=== PATIENT | male | born 1965 | race Hispanic/Latino ===

== ENCOUNTER → 2018-05-01 | Outpatient (CLI) | payer OTHER ==
[2018-05-01 09:17] LABS: BASOPHILS % (AUTO) 0.7 % (0.0-5.0); EOSINOPHILS % (AUTO) 3.7 % (0.0-8.0); HEMATOCRIT 46.3 % (42-54); LYMPHOCYTES % (AUTO) 40.5 % (21.0-51.0); MEAN CORPUSCULAR HEMOGLOBIN 30.7 pg (27.0-33.0); MEAN CORPUSCULAR HGB CONC 33.9 g/dL (32.0-36.0); MEAN CORPUSCULAR VOLUME 90.7 fL (79-99); MONOCYTES % (AUTO) 9.6 % (3.0-13.0); NEUTROPHILS % (AUTO) 45.5 % (40.0-77.0); NUCLEATED RED BLOOD CELLS 0.1 % (0.0-0.19); PLATELET COUNT (AUTO) 248 K/uL (130-400); RED CELL DISTRIBUTION WIDTH 14.5 % (11.0-15.5); WHITE BLOOD COUNT (AUTO) 5.7 K/uL (4.8-10.8)
[2018-05-01 09:26] LABS: CREATININE 0.9 mg/dL (0.5-1.5); POTASSIUM 4.2 mmol/L (3.5-5.1)
[2018-05-01 09:38] LABS: ALBUMIN 3.9 g/dL (3.5-5.0); BILIRUBIN,TOTAL 0.4 mg/dL (0.2-1.0); THYROID STIMULATING HORMONE 7.92 uIU/mL (0.36-3.74); TOTAL PROTEIN, SERUM 7.7 g/dL (6.0-8.3)
== END | disposition home or self-care (01) ==
LOC: LAB 08:07
PROVIDERS: ATTEND Internal Medicine
DX: Z12.11 Encounter for screening for malignant neoplasm of colon (principal); E03.9 Hypothyroidism, unspecified; I10 Essential (primary) hypertension; Z83.3 Family history of diabetes mellitus
CPT/HCPCS: 36415; 80053; 80061; 82043; 84153; 84443; 85025

== ENCOUNTER → 2018-05-03 | Outpatient (CLI) | payer OTHER | END | disposition home or self-care (01) | LOC: RAH 08:43 | PROVIDERS: ATTEND Internal Medicine | DX: I08.1 Rheumatic disorders of both mitral and tricuspid valves (principal); R06.09 Other forms of dyspnea | CPT/HCPCS: 93306 ==

== ENCOUNTER → 2018-05-04 | Outpatient (CLI) | payer OTHER | END | disposition home or self-care (01) | LOC: RAH 13:11 | PROVIDERS: ATTEND Internal Medicine | DX: R06.09 Other forms of dyspnea (principal); R07.9 Chest pain, unspecified | CPT/HCPCS: 93015 ==

== ENCOUNTER → 2018-06-02 | Outpatient (CLI) | payer OTHER ==
[~2018-06-02] MED LIST: REGADENOSON 0.4 MG/5 ML PF SYG IVP SCH
== END | disposition home or self-care (01) ==
LOC: SHCH 08:18
PROVIDERS: ATTEND Internal Medicine Cardiovascular Disease
DX: R07.9 Chest pain, unspecified (principal)
CPT/HCPCS: 78452; 93017; 96374; A9500 ×2; J2785

== ENCOUNTER → 2018-06-13 | Outpatient (CLI) | payer OTHER | END | disposition home or self-care (01) | LOC: SHCH 07:56 | PROVIDERS: ATTEND Internal Medicine Cardiovascular Disease | DX: I10 Essential (primary) hypertension (principal) | CPT/HCPCS: 93975 ==

== ENCOUNTER 2023-02-20 08:42 | Emergency (ER) | payer OTHER ==
[~2023-02-20] VITALS: Ht 154.9 cm; Wt 86.2 kg
[2023-02-20] MEDS ORDERED: MORPHINE 4 MG SYG IM ONE (09:30)
[2023-02-20] MEDS ORDERED: ONDANSETRON ODT 4MG TAB SL ONE (09:30)
[2023-02-20] MEDS ORDERED: MORPHINE 4 MG SYG IVP ONE (09:30)
[2023-02-20] MEDS ORDERED: GABA300C PO (09:31)
[2023-02-20] MEDS ORDERED: VALA10002 PO (09:31)
[2023-02-20] MEDS ORDERED: DIPH-1242 PO (09:31)
[2023-02-20] MEDS ORDERED: IBUP-2070 PO (09:31)
[2023-02-20 09:51] LABS: BILIRUBIN,URINE NEGATIVE (NEGATIVE); COLOR,URINE YELLOW (YELLOW); GLUCOSE, URINE (UA) NEGATIVE (NEGATIVE); KETONES,URINE NEGATIVE (NEGATIVE); LEUKOCYTE ESTERASE ,URINE NEGATIVE Leu/uL (NEGATIVE); NITRATE,URINE NEGATIVE (NEGATIVE); OCCULT BLOOD,URINE NEGATIVE (NEGATIVE); PH,URINE 5.5 (5.0-8.0); PROTEIN,URINE 10 mg/dL (NEGATIVE); UROBILINOGEN,URINE 0.2 mg/dL (0.2-1.0)
[2023-02-20 09:53] LABS: ADD UA MICROSCOPIC YES; APPEARANCE,URINE HAZY (CLEAR)
[2023-02-20 09:55] LABS: MUCUS,URINE RARE LPF (None Seen); WBC,URINE 0-1 /HPF (0-1)
[2023-02-20 10:38] VITALS: BP 126/76; PULSE 64; RESP 17; O2SAT 97
== END 2023-02-20 10:39 | disposition home or self-care (01) ==
LOC: EDH 08:42
DX: B02.9 Zoster without complications (principal); I10 Essential (primary) hypertension; Z79.899 Other long term (current) drug therapy
CPT/HCPCS: 99283; 81001; 96372; J2270

== ENCOUNTER → 2025-06-07 | Outpatient (CLI) | payer BC ==
[~2025-06-07] MED LIST changes: +DIPH-1242 PO; +GABA300C PO; +IBUP-1492 PO; -REGADENOSON 0.4 MG/5 ML PF SYG IVP SCH; +VALA10002 PO
--- NOTE | 2025-06-07 20:16 | HMCIMG ---
STUDY: X-RAY OF THE LEFT SHOULDER, 2+ VIEWS HISTORY: Pain in the left shoulder, unspecified. TECHNIQUE: AP views of the left shoulder in internal and external rotation, with additional complementary projections, are submitted for interpretation. COMPARISON: None provided. FINDINGS: Bones and joints: Mild degenerative changes of the acromioclavicular and glenohumeral joints with marginal osteophyte formation and minimal joint space narrowing. No acute fracture or dislocation is identified. Soft tissues: Periarticular soft tissues are unremarkable. No radiopaque foreign body or soft tissue calcification is seen. 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 * No acute fracture or dislocation. * MRI of the left shoulder may be useful for further evaluation of the rotator cuff and intra-articular soft tissues if symptoms persist or are disproportionate to radiographic findings. /[place]
--- NOTE | 2025-06-07 20:50 | HMCIMG ---
US ABDOMEN, RIGHT UPPER QUADRANT Clinical Details: Abnormal findings of blood chemistry. Technique: Right upper quadrant sonography performed with image documentation. Findings: Liver: The liver measures 17 cm in craniocaudal dimension. There is a suggestion of fatty infiltration indicated by increased echogenicity. No focal hepatic mass is identified. Gallbladder: The gallbladder wall thickness measures 2 mm. No gallbladder wall thickening is noted. No gallstones are evident. Common Bile Duct: The common bile duct diameter measures 4 mm, which is within normal limits. Pancreas: The pancreas is partially visualized. The distal pancreas is obscured by bowel gas without detectable abnormality in the visualized portion. Right Kidney: The right kidney measures approximately 11 ??? 6 ??? 3.7 cm. The renal contours are normal. No renal mass, calculus, or hydronephrosis is identified. Impression: * Hepatomegaly with fatty infiltration. /[place]
== END | disposition home or self-care (01) ==
LOC: RAH 08:16
PROVIDERS: ATTEND Internal Medicine
DX: M19.012 Primary osteoarthritis, left shoulder (principal); M25.712 Osteophyte, left shoulder; R79.89 Other specified abnormal findings of blood chemistry; K76.0 Fatty (change of) liver, not elsewhere classified
CPT/HCPCS: 73030; 76705